=== PATIENT | male | born 2000 | race Caucasian/White ===

== ENCOUNTER → 2023-10-07 10:02 | Outpatient (REF) | payer BC, SELFPAY | LOC: RAD 10:02 | PROVIDERS: ATTENDING PHYSICIAN Physician Assistant Medical; FAMILY PHYSICIAN Family Medicine | DX: M40.209 Unspecified kyphosis, site unspecified (principal) | CPT/HCPCS: 72052; 72072 ==

== ENCOUNTER → 2023-10-13 13:38 | Outpatient (REF) | payer OTHER, SELFPAY | LOC: RAD 13:38 | PROVIDERS: ATTENDING PHYSICIAN Physician Assistant Medical; FAMILY PHYSICIAN Family Medicine | DX: R59.0 Localized enlarged lymph nodes (principal) | CPT/HCPCS: 76536 ==

== ENCOUNTER → 2024-09-09 14:04 | Outpatient (REF) | payer OTHER, SELFPAY | LOC: RCS 14:04 | PROVIDERS: ATTENDING PHYSICIAN Physician Assistant Medical; FAMILY PHYSICIAN Family Medicine | DX: R00.2 Palpitations (principal); R07.9 Chest pain, unspecified; R06.02 Shortness of breath | CPT/HCPCS: 93017 ==

== ENCOUNTER → 2025-04-07 15:14 | Outpatient (REF) | payer OTHER, SELFPAY | LOC: HWRAD 15:14 | PROVIDERS: ATTENDING PHYSICIAN Family Medicine | DX: M54.16 Radiculopathy, lumbar region (principal) | CPT/HCPCS: 72110 ==

== ENCOUNTER → 2025-05-13 10:00 | Outpatient (REF) | payer OTHER, SELFPAY | LOC: PAVMRI 10:00 | PROVIDERS: ATTENDING PHYSICIAN Student in an Organized Health Care Education/Training Program; FAMILY PHYSICIAN Family Medicine | DX: M54.16 Radiculopathy, lumbar region (principal); M47.816 Spondylosis without myelopathy or radiculopathy, lumbar region | CPT/HCPCS: 72148 ==